=== PATIENT | female | born 1950 | race Caucasian/White ===

== ENCOUNTER 2016-07-14 11:51 | Emergency (ER) | payer MEDICARE, OTHER ==
[~2016-07-14] VITALS: Ht 164.5 cm; Wt 68.2 kg
[2016-07-14 12:06] VITALS: BP 134/75; PULSE 68; RESP 16; O2SAT 99
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
[2016-07-14 14:02] VITALS: BP 150/82; PULSE 66; RESP 16; O2SAT 99
== END 2016-07-14 14:08 | disposition home or self-care (01) ==
LOC: SED 11:51
DX: I89.1 Lymphangitis (principal); T22.011A Burn of unspecified degree of right forearm, initial encounter; T31.0 Burns involving less than 10% of body surface; X19.XXXA Contact with other heat and hot substances, initial encounter; Y92.9 Unspecified place or not applicable; Y93.G3 Activity, cooking and baking; Y99.8 Other external cause status; G89.29 Other chronic pain; Z86.14 Personal history of Methicillin resistant Staphylococcus aureus infection; Z98.890 Other specified postprocedural states; Z87.891 Personal history of nicotine dependence; Z79.891 Long term (current) use of opiate analgesic; Z88.8 Allergy status to other drugs, medicaments and biological substances